=== PATIENT | female | born 2005 | race Caucasian/White ===

== ENCOUNTER 2024-04-08 23:17 | Emergency (ER) | payer OTHER ==
--- OUTSIDE RECORDS SUMMARY | 2024-04-08 23:21 | XMS REPORT | Continuity of Care Document ---
Author Name Unknown Address [address] [place] [address] [address] [place] [address] [facility] thconnect Address [address] [facility] [address] [place] [address] Care Team Providers Care Butter Grader Name Role Phone GC_NOMI_Jean Pierre_G Attending Clinician Unavail able Jimmy Greenfield Attending Clinician [phone] CHAPO_NOMI_Jean Pierre_G Admitting Clinician Unavail able Payers Payer Name Policy Type Policy Number Effective Date Expirati on Date Source [employer] [facility] (PPO) [id number] Problems Condition Name Condition Details Condition Category Status Onset Date Resolution Date Last Treatment Date Treating Clinician Comments Source Ascorbic acid deficiency Ascorbic Acid Deficiency Problem Active 11-30 00:00: 00 [facility] Hyperchole sterolemia Hyperchole sterolemia Problem Active 11-30 00:00: 00 [facility] Social History Smoking Status Start Date Stop Date Source Never Smoker [facility] Medications Ordered Medication Name Filled Medication Name Start Date Stop Date Current Medication? Ordering Clinician Indication Dosage Frequency Signature (SIG) Comments Components Source Lo Loestrin Fe 1 mg-10 mcg (24)/10 mcg (2) tablet Take 1 tablet every day by oral route. Lo Loestrin Fe 1 mg-10 mcg (24)/10 mcg (2) tablet Take 1 tablet every day by oral route. No 1 Q1D Lo Loestrin Fe 1 mg-10 mcg (24)/10 mcg (2) tablet Take 1 tablet every day by oral route. [facility] Vyvanse 50 mg capsule TAKE 1 CAPSULE BY MOUTH EVERY DAY Vyvanse 50 mg capsule TAKE 1 CAPSULE BY MOUTH EVERY DAY No Vyvanse 50 mg capsule TAKE 1 CAPSULE BY MOUTH EVERY DAY [facility] Vital Signs Vital Name Observation Time Observation Value Comments S ource BP Diastolic 2021-11-30 00:00:00 80 mm[Hg] [facility] Height 2021-11-30 00:00:00 63 [in_i] [facility] BMI (Body Mass Index) 2021-11-30 00:00:00 36 kg/m2 [facility] BP Systolic 2021-11-30 00:00:00 131 mm[Hg] [facility] Body Weight 2021-11-30 00:00:00 203 [lb_av] [facility] Plan of Care Planned Activity Planned Date Details Comments Source Diagnostic Test Pending 2021-11-30 00:00:00 Ox-eye marianela IgE Ab [Units/volume] in Serum [code = 6196-0] [facility] Diagnostic Test Pending 2021-11-30 00:00:00 Weight of 24 hour Specimen [code = 3153-4] [facility] 2021-11-30 00:00:00 Output.ileostomy [Volume] [code = 9241-1] [facility] Diagnostic Test Pending 2021-11-30 00:00:00 FSH (follicle-stimulatin g hormone), serum [code = FSH (follicle-stimulatin g hormone), serum] [facility] Diagnostic Test Pending 2021-11-30 00:00:00 testosterone, free, serum [code = testosterone, free, serum] [facility] Diagnostic Test Pending 2021-11-30 00:00:00 dhea-sulfate, serum [code = dhea-sulfate, serum] [facility] Diagnostic Test Pending 2021-11-30 00:00:00 prolactin, serum [code = prolactin, serum] [facility] Diagnostic Test Pending 2021-11-30 00:00:00 estradiol, serum [code = estradiol, serum] [facility] Diagnostic Test Pending 2021-11-30 00:00:00 Malonate [Mass/volume] in Serum [code = 2603-9] [facility] En[facility] Start Date/Time End Date/Time Encounter Type Admission Type Attending [facility] Care Facility Care Department Encounter ID Source 2023-01-17 00:00:00 2023-01-17 00:00:00 Outpatient [facility]_ Jean Pierre_G PRIV PRIV [id number] [facility] 2023-01-17 00:00:00 2023-01-17 00:00:00 Outpatient [facility]_ Shelton_G PRIV PRIV [id number] [facility] 2023-01-16 00:00:00 2023-01-16 00:00:00 Outpatient [facility]_ Shelton_G PRIV PRIV [id number] [facility] 2022-04-26 00:00:00 2022-04-26 00:00:00 Outpatient [facility]_ Shelton_G PRIV PRIV [id number] [facility] 2022-02-19 00:00:00 2022-02-19 00:00:00 Outpatient [facility]_ Shelton_G PRIV PRIV [id number] [facility] 2021-12-26 00:00:00 2021-12-26 00:00:00 Outpatient [facility]_ Shelton_G PRIV PRIV [id number] [facility] 2021-12-04 00:00:00 2021-12-04 00:00:00 Outpatient [facility]_ Shelton_G PRIV PRIV [id number] [facility] 2021-11-30 00:00:00 2021-11-30 00:00:00 Outpatient [facility]_ Shel[place]_G PRIV PRIV [id number] [facility] 2021-11-30 00:00:00 2021-11-30 00:00:00 Jimmy Greenfield MD: [address] [place] [address] , Ph. [facility] - [facility]_ [place] Office [id number] [facility] 2021-11-30 00:00:00 2021-11-30 00:00:00 Outpatient Jimmy Greenfield PRIV PRIV [id number] 2021-11-29 00:00:00 2021-11-29 00:00:00 Outpatient [facility]_ Shel[place]_G PRIV PRIV [id number] [facility] 2021-11-27 00:00:00 2021-11-27 00:00:00 Outpatient [facility]_ Jean Pierre_Ethan [facility] [id number] [facility] Medical Results Test Description Test Time Test Comments Results Result Co mments Source [facility], [facility] + [id number] 00:00:00* Test Item Value Reference Range Interpretation Comme nts chlamydia naat (test code = chlamydia naat) not detected not detected gonorrhea naat (test code = gonorrhea naat) not detected not detected Pap, liquid-based (test code = Pap, liquid-based) nilm nilm [facility] MedicalSTI [id number] 00:00:00* Test Item Value Reference Range Interpretation Comme nts herpes I Ab.(IgG) (test code = herpes I Ab.(IgG)) >62.20 <0.90 H herpes II Ab.(IgG) (test cod e = herpes II Ab.(IgG)) 0.48 ai <0.90 RPR (test code = RPR) non-reactive non-reactive hep C Ab. (S/co ratio) (test code = hep C Ab. (S/co ratio)) <0.02 <0.80 hep. B core Ab. IgG (test co de = hep. B core Ab. IgG) non-reactive non-reactive hep. B surf. Ag (test code = hep. B surf. Ag) non-reactive non-reactive hep. C Ab. (test code = hep. C Ab.) non-reactive non-reactive HIV Ag/Ab (test code = HIV Ag/Ab) non-reactive non-reactive [facility] Free [Mass/volume] in Serum or [id number] 00:00:00* Test Item Value Reference Range Interpretation Comme nts free testosterone (test code = free testosterone) 0.34 NG/dL 0.12-0.64 sex hormone binding globulin (test code = sex hormone binding globulin) 43.60 nmol/L 10.00-57.00 testosterone (test code = testosterone) 22.3 NG/dL 8.4-48.1 [facility]rol[facility] [Mass/volume] in Serum or [id number] 00:00:00* Test Item Value Reference Range Interpretation Comme nts prolactin (test code = prolactin) 15.0 NG/mL 4.8-23.3 [facility] HeartDehydroepiandrosterone sulfate (DHEA-S) [Mass/volume] in Serum or [id number] 00:00:00* Test Item Value Reference Range Interpretation Comme nts DHEA-S (test code = DHEA-S) 216.0 ug/dL 98.8-340.0 [facility]ollitropin [Units/volume] in Serum or [id number] 00:00:00* Test Item Value Reference Range Interpretation Comme nts FSH (test code = FSH) 5.6 mIU/mL [facility] Heart[facility]stradiol (E2) [Mass/volume] in Serum or [id number] 00:00:00 * Test Item Value Reference Range Interpretation Comme nts estradiol (test code = estradiol) 39.0 pg/mL 6.1-91.9 [facility] Heart[facility]ichomonas vaginalis thin prep (swhl) 2021-12-03 00:00:00* Test Item Value Reference Range Interpretation Comme nts trichomonas vaginalis thinpr ep (test code = trichomonas vaginalis thinprep) trich neg negative [facility]
[2024-04-09] MEDS ORDERED: ONDANSETRON 4 MG/2 ML VIAL ONE (00:18)
[2024-04-09] MEDS ORDERED: KETOROLAC 30 MG/ML INJ ONE (00:18)
[2024-04-09] MEDS ORDERED: NA CHLORIDE 0.9% 1,000 ML ONE (00:18)
[2024-04-09 00:48] LABS: Specific Gravity < 1.005 (1.005-1.030); Urine Bilirubin NEGATIVE (Negative); Urine Blood Negative (Negative); Urine Clarity Clear (Clear); Urine Color Colorless (Yellow); Urine Glucose NEGATIVE (Negative); Urine Ketones 1+ (Negative); Urine Microscopic Reflex YN NO UMIC; Urine Nitrite NEGATIVE (Negative); Urine Protein NEGATIVE (Negative); Urine Urobilinogen Normal (Normal)
[2024-04-09 00:49] LABS: Specific Gravity < 1.005 (1.005-1.030)
[2024-04-09 01:38] LABS: Absolute Basophils 0.1 K/uL (0-0.5); Absolute Eosinophils 0.1 K/uL (0-0.5); Absolute Lymphocytes (CBC) 3.4 K/uL (0.7-4.9); Absolute Monocytes 0.8 K/uL (0.1-1.3); Absolute Neutrophil 8.3 K/uL (1.8-8.0); Basophils % 0.5 % (0-1.3); Eosinophils % 0.7 % (0-4.4); Hematocrit 40.2 % (36.0-45.0); Hemoglobin 13.7 g/dL (12.0-15.0); Lymphocytes % 26.5 % (15.3-44.8); MCH 28.6 pg (27.0-35.0); MCHC 34.2 g/dL (32.0-36.0); MCV 83.7 fL (80-100); MPV 7.4 fL (7.6-11.3); Monocytes % 6.6 % (3.3-12.3); Neutrophils % 65.7 % (41.7-73.7); Platelets 461 thou/uL (152-406); Red Cell Distribution Width 13.3 % (12.1-15.2)
[2024-04-09 01:52] LABS: Albumin 3.8 g/dL (3.4-5.0); Albumin/Globulin Ratio 0.9 (1.1-1.8); Anion Gap 7.7 mEq/L (5.0-15.0); Bilirubin Total 0.3 mg/dL (0.2-1.0); Globulin 4.1 g/dL (2.3-3.5); Potassium 3.7 mEq/L (3.5-5.1); Protein, Total 7.9 g/dL (6.4-8.2)
--- NOTE | 2024-04-09 03:19 | RAD REPORT ---
EXAM DESCRIPTION: CT ABDOMEN AND PELVIS WITHOUT CONTRAST CLINICAL HISTORY: left flank pain COMPARISON: None Available. TECHNIQUE: CT of the abdomen and pelvis without IV contrast. Evaluation of the solid organs and vascu lature is suboptimal due to lack of IV contrast. This exam was performed according to our departmental dose-optimization program, which includes automated exposure control, adjustment of the mA and/or kV according to patient size and/or use of iterative reconstruction technique. FINDINGS: Lung Bases: The visualized lung bases are clear. Bones: No acute osseous abnormality identified. Abdomen: Liver: The liver has normal size and density. Gallbladder: No calcified gallstones. Spleen, Pancreas, and Adrenal Glands: The spleen, pancreas, and adrenal glands are unremarkable. Kidneys: No hydronephrosis or obstructing ureteral calculi. Vasculature: The aorta and IVC have normal caliber and position. Stomach: The stomach and duodenum have normal course. Other: No free intraperitoneal air. Small amount of free fluid. Pelvis: Bladder: Mild wall thickening of the urinary bladder. Bowel: No dilated loops of large or small bowel. Mild wall thickening of the proximal small bowel w ith shotty superior mesenteric lymph nodes. Appendix: Normal appendix. Pelvis: Uterus is not enlarged. IMPRESSION: 1. Mild wall thickening of the proximal small bowel with shotty superior mesenteric lymph nodes. Th jennifer findings could be seen with nonspecific enteritis. 2. Mild wall thickening of the urinary bladder. This could be seen with cystitis. 3. Small amount of free fluid. Electronically signed by: Phillip James DO 04/09/2024 02:41 AM [facility] 4ZDM Due to temporary technical issues with the PACS/TextHog reporting system, reports are being breezy d by the in-house radiologist without review as a courtesy to ensure prompt reporting the interpreting radiologist is fully responsible for the content of the report. Transcribed Date/Time: 04/09/2024 3:19 AM
--- NOTE | 2024-04-09 04:08 | ER ---
Nurse's Notes [facility] Name: Luz Marina Mcintyre Age: 18 yrs Sex: Female : 2005 Arrival Date: 04/08/2024 Time: 23:17 Bed 15 Private MD: Diagnosis: Acute gastroenteritis, acute lower back pain Presentation: 04/08 23:41 Chief complaint: Patient states: I have been having back pain for 2 days. Coronavirus bm8 screen: At this time, the client does not indicate any symptoms associated with coronavirus-19. Ebola Screen: Patient negative for fever greater than or equal to 101.5 degrees Fahrenheit, and additional compatible Ebola Virus Disease symptoms Patient denies exposure to infectious person. Patient denies travel to an Ebola-affected area in the 21 days before illness onset. No symptoms or risks identified at this time. Initial Sepsis Screen: Does the patient meet any 2 criteria? No. Patient's initial sepsis screen is negative. Does the patient have a suspected source of infection? No. Patient's initial sepsis screen is negative. Risk Assessment: Do you want to hurt yourself or someone else? Patient reports no desire to harm self or others. Onset of symptoms was April 07, 2024 at 08:00. 23:41 Method Of Arrival: Ambulatory bm8 23:41 Acuity: LILIANA 3 bm8 Triage Assessment: 23:42 General: Appears in no apparent distress. comfortable, Behavior is calm, cooperative, bm8 appropriate for age. Pain: Complains of pain in left mid back Pain currently is 8 out of 10 on a pain scale. Neuro: No deficits noted. Level of Consciousness is awake, alert, obeys commands, Oriented to person, place, time, situation, Appropriate for age. Cardiovascular: No deficits noted. Respiratory: No deficits noted. : Urine is clear, Reports pain in left flank(s). 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 - Infectious Disease History:: Denies. - Social history:: Smoking status: Patient denies any tobacco usage or history of. Screenin/17 00:00 [facility] ED Fall Risk Assessment (Adult) History of falling in the last 3 months, rg5 including since admission No falls in past 3 months (0 pts) Confusion or Disorientation No (0 pts) Intoxicated or Sedated No (0 pts) Impaired Gait No (0 pts) Mobility Assist Device Used No (0 pt) Altered Elimination No (0 pt) Score/Fall Risk Level 0 - 2 = Low Risk Oriented to surroundings, Maintained a safe environment, Hourly rounding (assess needs \T\ fall precautionary measures) done. 00:00 Abuse screen: Denies threats or abuse. Nutritional screening: No deficits noted. rg5 Tuberculosis screening: No symptoms or risk factors identified. Assessment: 00:00 Reassessment: No changes from previously documented assessment. Patient and/or family rg5 updated on plan of care and expected duration. Pain level reassessed. Patient is alert, oriented x 3, equal unlabored respirations, skin warm/dry/pink. 01:30 Reassessment: Patient and/or family updated on plan of care and expected duration. Pain rg5 level reassessed. Patient is alert, oriented x 3, equal unlabored respirations, skin warm/dry/pink. 02:30 Reassessment: Patient and/or family updated on plan of care and expected duration. Pain rg5 level reassessed. Patient is alert, oriented x 3, equal unlabored respirations, skin warm/dry/pink. Patient states feeling better. 03:30 Reassessment: Patient and/or family updated on plan of care and expected duration. Pain rg5 level reassessed. Patient is alert, oriented x 3, equal unlabored respirations, skin warm/dry/pink. Patient states feeling better. Patient states symptoms have improved. Vital Signs: 04/08 23:41 BP 127 / 75; Pulse 90; Resp 18; Temp 97.8; Pulse Ox 98% ; Weight 89.36 kg; Height 5 ft. bm8 3 in. ; Pain 8/10; 04/09 03:30 BP 119 / 76; Pulse 87; Resp 17; Temp 98; Pulse Ox 100% on R/A; Pain 2/10; rg5 04/08 23:41 Body Mass Index 34.90 (89.36 kg, 160.02 cm) 8 04/08 23:41 Pain Scale: Adult 8 04/09 03:30 Pain Scale: Adult rg5 ED Course: 04/08 23:37 Patient arrived in ED. jj6 23:39 Philip Miguel PA is PHCP. cp 23:39 Mahin Solorzano MD is Attending Physician. cp 23:42 Triage completed. 8 23:42 Arm band placed on right wrist. 8 04/09 00:00 Patient has correct armband on for positive identification. Bed in low position. Call rg5 light in reach. Side rails up X 1. Door closed. Noise minimized. Warm blanket given. Verbal reassurance given. 00:00 No provider procedures requiring assistance completed. rg5 00:20 Zeus Mc, RN is Primary Nurse. rg5 01:25 Initial lab(s) drawn, by ok, sent to lab. Inserted saline lock: 22 gauge in right lg3 forearm, using aseptic technique. Blood collected. Flushed with 10 mL NS. 01:26 CBC with Diff Sent. lg3 01:26 CMP Sent. lg3 01:26 Lipase Sent. lg3 01:37 CT Stone Protocol In Process Unspecified. EDMS 04:19 Provided Education on: post er care done. rg5 04:19 IV discontinued, bleeding controlled, No redness/swelling at site. Pressure dressing rg5 applied. Administered Medications: 01:00 Drug: TORadol - Ketorolac IVP 15 mg IVP once Route: IVP; Site: right forearm; rg5 02:00 Follow up: Response: No adverse reaction; Pain is decreased rg5 01:00 Drug: Ondansetron IVP 4 mg IVP once; over 2 minutes Route: IVP; Site: right forearm; rg5 02:00 Follow up: Response: No adverse reaction rg5 01:00 Drug: NS 0.9% IV 1000 ml IV at 1 bolus Per protocol; to be given as a bolus over 60 rg5 minutes Route: IV; Rate: 1 bolus; Site: right forearm; 02:00 Follow up: IV Status: Completed infusion; IV Intake: 1000ml rg5 Medication: 00:00 VIS not applicable for this client. rg5 Intake: 02:00 IV: 1000ml; Total: 1000ml. rg5 Outcome: 04:07 Discharge ordered by . sp4 04:18 Discharged to home ambulatory, rg5 04:18 Condition: stable 04:18 Discharge instructions given to patient, Instructed on discharge instructions, follow up and referral plans. Demonstrated understanding of instructions, follow-up care, Prescriptions given X 2, 04:21 Patient left the ED. rg5 Signatures: Dispatcher [employer] EDMS Philip Miguel PA PA cp Able, Lacie, RN RN lg3 Marisela Louis6 Mahin Solorzano MD MD sp4 Baldemar Spears, RN RN bm8 Zeus Mc, RN RN rg5
--- NOTE | 2024-04-09 04:08 | EDPHYS ---
Physician Documentation [facility] Name: Luz Marina Mcintyre Age: 18 yrs Sex: Female : 2005 Arrival Date: 04/08/2024 Time: 23:17 Bed 15 Private MD: ED Physician Mahin Solorzano HPI: 04/08 23:55 This 18 yrs old Female presents to ER via Ambulatory with complaints of Low Back Pain. cp 23:55 The patient presents with pain that is acute, with no known mechanism of injury. The cp symptoms are located in the left mid back. The pain radiates to the left flank. The problem was sustained pain started yesterday while driving home from work. Associated signs and symptoms: Pertinent positives: nausea, Pertinent negatives: constipation, fever, hematuria, numbness, vomiting, weakness. Severity of symptoms: in the emergency department the symptoms are unchanged, despite home interventions. 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 - Infectious Disease History:: Denies. - Social history:: Smoking status: Patient denies any tobacco usage or history of. ROS: 23:59 Constitutional: Negative for body aches, chills, fever, poor PO intake, cp 23:59 Abdomen/GI: Positive for nausea, 23:59 Back: Positive for flank pain, on the left, of the left mid back, Negative for injury or acute deformity, decreased range of motion, 23:59 Respiratory: Negative for cough, shortness of breath, wheezing, cp 23:59 ENT: Negative for drainage from ear(s), ear pain, sore throat, difficulty swallowing, cp difficulty handling secretions, 23:59 Cardiovascular: Negative for chest pain, 23:59 : Negative for hematuria, burning with urination, 23:59 Neuro: Negative for altered mental status, dizziness, headache, weakness, 23:59 All other systems are negative, Exam: 23:59 Head/Face: Normocephalic, atraumatic. cp 23:59 Constitutional: The patient appears in no acute distress, alert, awake, non-toxic, well developed, well nourished, obese, 23:59 Eyes: Periorbital structures: appear normal, Conjunctiva: normal, no exudate, no cp injection, Sclera: no appreciated abnormality, Lids and lashes: appear normal, bilaterally, 23:59 ENT: External ear(s): are unremarkable, Nose: is normal, Mouth: Lips: moist, Oral mucosa: moist, Posterior pharynx: Airway: no evidence of obstruction, patent, 23:59 Chest/axilla: Inspection: normal, 23:59 Cardiovascular: Rate: normal, Rhythm: regular, 23:59 Respiratory: the patient does not display signs of respiratory distress, Respirations: normal, no use of accessory muscles, no retractions, labored breathing, is not present, Breath sounds: are clear throughout, no decreased breath sounds, no stridor, no wheezing, 23:59 Abdomen/GI: Inspection: abdomen appears normal, Palpation: abdomen is soft and non-tender, in all quadrants, 23:59 Back: pain, that is moderate, of the left mid back, ROM is painful, with all movement, 23:59 Neuro: Orientation: to person, place \T\ time. Mentation: is normal, Motor: moves all fours, strength is normal, Gait: is steady, at a normal pace, without difficulty, Vital Signs: 23:41 BP 127 / 75; Pulse 90; Resp 18; Temp 97.8; Pulse Ox 98% ; Weight 89.36 kg; Height 5 ft. bm8 3 in. ; Pain 8/10; 04/09 03:30 BP 119 / 76; Pulse 87; Resp 17; Temp 98; Pulse Ox 100% on R/A; Pain 2/10; rg5 04/08 23:41 Body Mass Index 34.90 (89.36 kg, 160.02 cm) bm8 04/08 23:41 Pain Scale: Adult bm8 04/09 03:30 Pain Scale: Adult rg5 MDM: 04/08 23:45 Medical Screening Exam initiated 04/09 02:00 I considered the following discharge prescriptions or medication management in the emergency department Medications were administered in the Emergency Department. See MAY. 02:00 Care significantly affected by the following chronic conditions: Obesity. Transition of cp care: After a detail discussion of the patient's case, care is transferred to Mahin Solorzano MD. 04:11 ED course: EXAM DESCRIPTION: CTABDOMEN AND PELVIS WITHOUT CONTRAST CLINICAL HISTORY: sp4 left flank pain COMPARISON: None Available. TECHNIQUE: CT of the abdomen and pelvis without IV contrast. Evaluation of the solid organs and vasculature is suboptimal due to lack of IV contrast. This exam was performed according to our departmental dose-optimization program, which includes automated exposure control, adjustment of the mA and/or kV according to patient size and/or use of iterative reconstruction technique. FINDINGS: Lung Bases: The visualized lung bases are clear. Bones: No acute osseous abnormality identified. Abdomen: Liver: The liver has normal size and density. Gallbladder: No calcified gallstones. Spleen, Pancreas, and Adrenal Glands: The spleen, pancreas, and adrenal glands are unremarkable. Kidneys: No hydronephrosis or obstructing ureteral calculi. Vasculature: The aorta and IVC have normal caliber and position. Stomach: The stomach and duodenum have normal course. Other: No free intraperitoneal air. Small amount of free fluid. Pelvis: Bladder: Mild wall thickening of the urinary bladder. Bowel: No dilated loops of large or small bowel. Mild wall thickening of the proximal small bowel with shotty superior mesenteric lymph nodes. Appendix: Normal appendix. Pelvis:Uterus is not enlarged. IMPRESSION: 1. Mild wall thickening of the proximal small bowel with shotty superior mesenteric lymph nodes. These findings could be seen with nonspecific enteritis. 2. Mild wall thickening of the urinary bladder. This could be seen with cystitis. 3. Small amount of free fluid. Electronically signed by: Phillip James DO 04/09/2024 02:41 . 04:11 Differential diagnosis: arthritis, strain, contusion, UTI. Data reviewed: vital signs, sp4 nurses notes, lab test result(s), radiologic studies, CT scan. Consideration of Admission/Observation Escalation of care including admission/observation considered. ED course: Patient is stable for discharge home, pain is improved, advise clear liquid diet for 24 hours.. 04/08 23:49 Order name: Urinalysis w/ reflexes; Complete Time: 01:09 04/09 01:09 Interpretation: Reviewed. 04/08 23:49 Order name: Test, Urine; Complete Time: 01:09 04/09 00:01 Order name: CBC with Diff; Complete Time: 01:56 cp 04/09 01:57 Interpretation: Normal except: WBC 12.70; PLT 461; NEUT A 8.3; MPV 7.4. cp 04/09 00:01 Order name: CMP; Complete Time: 01:56 cp 04/09 01:57 Interpretation: Normal except: AST 11; GLOB 4.1; A/G 0.9. cp 04/09 00:01 Order name: Lipase; Complete Time: 01:56 cp 04/09 01:09 Order name: CT Stone Protocol cp 04/09 00:01 Order name: IV Saline Lock; Complete Time: 01:26 cp 04/09 00:01 Order name: Labs collected and sent; Complete Time: : cp Administered Medications: 01:00 Drug: TORadol - Ketorolac IVP 15 mg IVP once Route: IVP; Site: right forearm; rg5 02:00 Follow up: Response: No adverse reaction; Pain is decreased rg5 01:00 Drug: Ondansetron IVP 4 mg IVP once; over 2 minutes Route: IVP; Site: right forearm; rg5 02:00 Follow up: Response: No adverse reaction rg5 01:00 Drug: NS 0.9% IV 1000 ml IV at 1 bolus Per protocol; to be given as a bolus over 60 rg5 minutes Route: IV; Rate: 1 bolus; Site: right forearm; 02:00 Follow up: IV Status: Completed infusion; IV Intake: 1000ml rg5 Disposition: 04:06 Co-signature as Attending Physician, Mahin Solorzano MD I agree with the assessment sp4 and plan of care. I reviewed the patient's care provided by Advanced Practice Provider \T\ agree w/ the diagnosis \T\ care plan. I personally saw the pt \T\ performed a substantive portion of the visit, incldng all aspects of the (History/Exam/Medical Decision Making). Disposition Summary: 04/09/24 04:07 Discharge Ordered Notes: Location: Home sp4 Problem: new sp4 Symptoms: have improved sp4 Condition: Stable sp4 Diagnosis - Acute gastroenteritis, acute lower back pain sp4 Followup: sp4 - With: Private Physician - When: 7 - 10 days - Reason: Recheck today's complaints Discharge Instructions: - Discharge Summary Sheet sp4 - Clear Liquid Diet, Adult, [id number] sp4 Forms: - Work release form rv1 - Patient Portal Instructions sp4 Prescriptions: - naproxen 500 mg Oral tablet - take 1 tablet ORAL route every 12 hours PRN pain; 30 tablet; Refills: 0, sp4 Product Selection Permitted - ondansetron 8 mg Oral Tablet,disintegrating - take 1 tablet ORAL route every 8 hours PRN pain; 30 tablet; Refills: 0, Product sp4 Selection Permitted Signatures: Dispatcher [employer] EDMS Philip Miguel PA PA cp Potepalov, Sergey, MD MD sp4 Baldemar Spears RN RN bm8 Zeus Mc RN RN rg5 Corrections: (The following items were deleted from the chart) 18:02 04:12 Constitutional: Negative for fever, chills, and weight loss, positive for back cp pain sp4
[2024-04-09 04:38] VITALS: BP 119/76; TEMP 98; O2SAT 100
== END 2024-04-09 04:21 | disposition home or self-care (01) ==
LOC: ER 23:17
DX: K52.9 Noninfective gastroenteritis and colitis, unspecified (principal)
CPT/HCPCS: 96361; 85025; 36415; 81025; 81003; 83690; 80053; 76377; 74176; 96375; 96374; 99284; J2405; J7030